=== PATIENT | female | born 1970 | race Caucasian/White ===

== ENCOUNTER 2018-11-26 19:59 | Emergency (ER) | payer BC, OTHER ==
[2018-11-26 20:06] VITALS: TEMP 97.7; BMI 27.7
[2018-11-26 21:35] LABS: BASO % 0.6 % (0-2.0); EOS % 1.1 % (0-4.5); HEMOGLOBIN 14.9 GM/dl (10.7-15.3); LYMPH % 19.8 % (8-40); MCH 31.3 pg (25.7-33.7); MCHC 33.1 g/dl (32.0-36.0); MEAN CELL VOLUME 94.7 fl (80-96); MEAN PLT VOLUME 8.7 fl (7.5-11.1); MONO % 4.8 % (3.8-10.2); NEUT % 73.7 % (42.8-82.8); PLATELET COUNT 309 K/MM3 (134-434); RBC 4.76 M/mm3 (3.60-5.2); RDW 12.3 % (11.6-15.6); WHITE BLOOD COUNT 9.1 K/mm3 (4.0-10.8)
[2018-11-26 21:50] LABS: ALBUMIN 4.2 g/dl (3.5-5.0); ALK PHOS 88 U/L (32-92); ANION GAP 10 MMOL/L (8-16); BILIRUBIN,TOTAL 0.6 mg/dl (0.2-1.0); BLOOD UREA NITROGEN 10 mg/dl (7-18); CALCIUM 8.9 mg/dl (8.4-10.2); CHLORIDE 100 mmol/L (98-107); CO2 24 mmol/L (22-28); CREATININE 0.6 mg/dl (0.6-1.3); GLUCOSE,RANDOM 108 mg/dl (74-106); SGOT/AST 25 U/L (10-42); SGPT/ALT 18 U/L (10-40); SODIUM 134 mmol/L (136-145); TOT PROT 7.5 g/dl (6.4-8.3)
--- NOTE | 2018-11-26 22:05 | PDOC ---
History of Present Illness - General Chief Complaint: Palpitations Stated Complaint: PALPITATIONS Time Seen by Provider: 11/26/18 19:59 - History of Present Illness Initial Comments: 11/26/18 21:53 Patient is a 48 year old female with a significant past medical history of HTN, diabetes, who presents to the ED with complaints of intermittent palpitations that began x2 days ago. Patient reports experiencing sudden onset palpitations while at rest this past Sunday. Not associated with CP/SOB/lightheadedness. She states that she felt very anxious at the time. The episode lasted a few minutes before subsiding spontaneously. Pt does endorse being under increased stress at work. She took the day off yesterday, which she states helped her a lot. However , today, pt returned to work and had a long stressful meeting. When she came home, she had another episode of palpitations lasting a few minutes. Denies chest pain, Sob. Denies nausea, vomiting. Denies contact with sick individuals out of state travelling. Denies fevers, chills. Denies any other symptoms. Pt states she is currently asymptomatic. Allergies: None Social history: Former smoker (last 12 yr ago). Social alcohol use. No illicit drugs. Surgical history: 2 c-sections. PMD: Dr. Fortune Past History - Past Medical History Allergies/Adverse Reactions: Allergies Allergy/AdvReac Type Severity Reaction Status Date / Time No Known Allergies Allergy Verified 11/26/18 19:59 Home Medications: Ambulatory Orders Lisinopril 20 mg PO DAILY 11/26/18 Cardiac Disorders: Yes ("IRREGULAR HEART RATE") COPD: No HTN: Yes Other medical history: SCOLIOSIS - Suicide/Smoking/Psychosocial Hx Smoking History: Never smoked Have you smoked in the past 12 months: No Information on smoking cessation initiated: No Hx Alcohol Use: (occasional) Review of Systems - Review of Systems Comments:: 11/26/18 21:55 GENERAL/CONSTITUTIONAL: No fever or chills. No weakness. HEAD, EYES, EARS, NOSE AND THROAT: No change in vision. No ear pain or discharge. No sore throat. CARDIOVASCULAR: + palpitations. No chest pain or shortness of breath. RESPIRATORY: No cough, wheezing, or hemoptysis. GASTROINTESTINAL: No nausea, vomiting, diarrhea or constipation. GENITOURINARY: No dysuria, frequency, or change in urination. MUSCULOSKELETAL: No joint or muscle swelling or pain. No neck or back pain. SKIN: No rash NEUROLOGIC: No headache, vertigo, loss of consciousness, or change in strength/ sensation. ENDOCRINE: No increased thirst. No abnormal weight change. HEMATOLOGIC/LYMPHATIC: No anemia, easy bleeding, or history of blood clots. ALLERGIC/IMMUNOLOGIC: No hives or skin allergy. *Physical Exam - Vital Signs Last Vital Signs Temp Pulse Resp BP Pulse Ox 97.7 F 103 H 18 116/88 99 11/26/18 19:59 11/26/18 19:59 11/26/18 19:59 11/26/18 19:59 11/26/18 19:59 - Physical Exam Comments: 11/26/18 21:55 GENERAL: Awake, alert, and fully oriented, in no acute distress. HEAD: No signs of trauma EYES: PERRLA, EOMI, sclera anicteric, conjunctiva clear ENT: Auricles normal inspection, hearing grossly normal, nares patent, oropharynx clear without exudates. Moist mucosa NECK: Nontender, no step offs, Normal ROM, supple, no lymphadenopathy, JVD, or masses LUNGS: Breath sounds equal, clear to auscultation bilaterally. No wheezes, and no crackles HEART: Regular rate and rhythm, normal S1 and S2, no murmurs, rubs or gallops ABDOMEN: Soft, nontender, normoactive bowel sounds. No guarding, no rebound. No masses EXTREMITIES: Normal range of motion, no edema. No clubbing or cyanosis. No cords, erythema, or tenderness NEUROLOGICAL: Cranial nerves II through XII intact. 5/5 strength and sensation in all extremities, Normal speech, normal gait, normal cerebellar function SKIN: Warm, Dry, normal turgor, no rashes or lesions noted. Moderate Sedation - Procedure Monitoring Vital Signs: Procedure Monitoring Vital Signs Temperature 97.7 F 11/26/18 19:59 Pulse Rate 103 H 11/26/18 19:59 Respiratory Rate 18 11/26/18 19:59 Blood Pressure 116/88 11/26/18 19:59 O2 Sat by Pulse Oximetry (%) 99 11/26/18 19:59 Heart Score/ECG Review - ECG Impressions Comment:: 11/26/18 21:55 NSR, no DANETTE/STDs, no TWIs, axis wnl, intervals wnl, rate 97 ED Treatment Course - LABORATORY CBC & Chemistry Diagram: 11/26/18 21:15 11/26/18 21:15 - ADDITIONAL ORDERS Additional order review: 11/26/18 21:15 RBC 4.76 MCV 94.7 MCHC 33.1 RDW 12.3 MPV 8.7 Neutrophils % 73.7 Lymphocytes % 19.8 Monocytes % 4.8 Eosinophils % 1.1 Basophils % 0.6 Medical Decision Making - Medical Decision Making 11/26/18 21:55 48 F with intermittent palpitations x 2 days, now resolved. Pt with no CP/SOB to suggest ACS. Suspect stress/anxiety-related. Will also evaluate for hyperthyroid. Pt with no symptoms currently. - Labs, TSH, trop - Reassess 11/26/18 22:29 Trop 0.11 Pt reassessed - continues to be chest pain free, asymptomatic Will admit to obs for trending of troponins Pt admitted to hospitalist. *DC/Admit/Observation/Transfer Diagnosis at time of Disposition: Palpitations - Discharge Dispostion Condition at time of disposition: Stable Decision to Admit order: Yes - Referrals Referrals: Taryn Fortune MD [Primary Care Provider] - - Patient Instructions - Post Discharge Activity - Attestations Physician Attestion: 11/26/18 22:29 I, Dr. Taran Matias MD, attest that this document has been prepared under my direction and personally reviewed by me in its entirety. I further attest, that it accurately reflects all work, treatment, procedures and medical decision -making performed by me.
[2018-11-26] MEDS ORDERED: ASPIRIN 81 MG CHEWABLE TABLETS PO ONE (22:34)
--- NOTE | 2018-11-26 22:39 | HP ---
CHIEF COMPLAINT: Palpitations PCP: Dr. Rosenda Fortune Aging Room Operator: Dr.Anthony Brown HISTORY OF PRESENT ILLNESS: This is a 48 y/o woman from home who reports having palpitations x 2 days. Patient reports while watching TV she began feeling palpitations lasting severeal seconds to minutes. Patient reports while at home today she had palpitations again, coming to the ED for evaluation. Patient denies having lightheadedness, SOB, CP. Patient denies fever, chills, cough, AP, N/V/D, constipation, dysuria ER course was notable for: (1) Troponin I 0.11, 0.58 (2) EKG- NSR 97 bpm, possible lateral infarct, inferior infarct age undetermined (3) Chest Xray image, no infiltrate no pleural effusion Recent Travel: None PAST MEDICAL HISTORY: HTN DM Scoliosis PAST SURGICAL HISTORY: C- section x2 [place] [facility] Social History: Smoking: Former > 16 yrs ago Alcohol: Wine, occasionally Drugs: Denies Resides with spouse and 2 sons, employed [employer] Family History: Father: HTN, Heart Disease late 50's Stent Sister: IBS Diabetes: Paternal Family Allergies No Known Allergies Allergy (Verified 11/26/18 19:59) HOME MEDICATIONS: Home Medications Medication Instructions Recorded Lisinopril 20 mg PO DAILY 11/26/18 REVIEW OF SYSTEMS CONSTITUTIONAL: Absent: fever, chills, diaphoresis, generalized weakness, malaise, loss of appetite, weight change HEENT: Absent: rhinorrhea, nasal congestion, throat pain, throat swelling, difficulty swallowing, mouth swelling, ear pain, eye pain, visual changes CARDIOVASCULAR: palpitations Absent: chest pain, syncope, irregular heart rate, lightheadedness, peripheral edema RESPIRATORY: Absent: cough, shortness of breath, dyspnea with exertion, orthopnea, wheezing, stridor, hemoptysis GASTROINTESTINAL: Absent: abdominal pain, abdominal distension, nausea, vomiting, diarrhea, constipation, melena, hematochezia GENITOURINARY: Absent: dysuria, frequency, urgency, hesitancy, hematuria, flank pain, genital pain MUSCULOSKELETAL: Absent: myalgia, arthralgia, joint swelling, back pain, neck pain SKIN: Absent: rash, itching, pallor HEMATOLOGIC/IMMUNOLOGIC: Absent: easy bleeding, easy bruising, lymphadenopathy, frequent infections ENDOCRINE: Absent: unexplained weight gain, unexplained weight loss, heat intolerance, cold intolerance NEUROLOGIC: headache Absent: focal weakness or paresthesias, dizziness, unsteady gait, seizure, mental status changes, bladder or bowel incontinence PSYCHIATRIC: Absent: anxiety, depression, suicidal or homicidal ideation, hallucinations. PHYSICAL EXAMINATION Vital Signs - 24 hr 11/26/18 19:59 Temperature 97.7 F Pulse Rate 103 H Respiratory 18 Rate Blood Pressure 116/88 O2 Sat by Pulse 99 Oximetry (%) GENERAL: Awake, alert, and fully oriented, in no acute distress. HEAD: Normal with no signs of trauma. EYES: Pupils equal, round and reactive to light, extraocular movements intact, sclera anicteric, conjunctiva clear. No lid lag. EARS, NOSE, THROAT: Ears normal, nares patent, oropharynx clear without exudates. Moist mucous membranes. NECK: Normal range of motion, supple without lymphadenopathy, JVD, or masses. LUNGS: Breath sounds equal, clear to auscultation bilaterally. No wheezes, and no crackles. No accessory muscle use. HEART: Tachycardia rate and rhythm, normal S1 and S2 without murmur, rub or gallop. ABDOMEN: Soft, nontender, not distended, normoactive bowel sounds, no guarding, no rebound, no masses. No hepatomegaly or splenomegaly. MUSCULOSKELETAL: Normal range of motion at all joints. No bony deformities or tenderness. No CVA tenderness. UPPER EXTREMITIES: 2+ pulses, warm, well-perfused. No cyanosis. No clubbing. No peripheral edema. LOWER EXTREMITIES: 2+ pulses, warm, well-perfused. No calf tenderness. No peripheral edema. NEUROLOGICAL: Cranial nerves II-XII intact. Normal speech. Gait not observed. PSYCHIATRIC: Cooperative. Good eye contact. Appropriate mood and affect. SKIN: Warm, dry, normal turgor, no rashes or lesions noted, normal capillary refill. Laboratory Results - last 24 hr 11/26/18 11/26/18 11/26/18 21:15 21:15 21:15 WBC 9.1 RBC 4.76 Hgb 14.9 Hct 45.0 MCV 94.7 MCH 31.3 MCHC 33.1 RDW 12.3 Plt Count 309 MPV 8.7 Absolute Neuts (auto) 6.7 Neutrophils % 73.7 Lymphocytes % 19.8 Monocytes % 4.8 Eosinophils % 1.1 Basophils % 0.6 Sodium 134 L Potassium 4.0 Chloride 100 Carbon Dioxide 24 Anion Gap 10 BUN 10 Creatinine 0.6 Creat Clearance w eGFR > 60 Random Glucose 108 H Calcium 8.9 Total Bilirubin 0.6 AST 25 ALT 18 Alkaline Phosphatase 88 Creatine Kinase 93 Troponin I 0.11 H Total Protein 7.5 Albumin 4.2 ASSESSMENT/PLAN: This is a 48 y/o woman with a PMHx of: HTN, DM, Scoliosis. Admitted for Palpations, Elevated Troponin, NSTEMI for further evaluation of their emergent condition. Plan: See Problem List FEN Replete lytes as indicated Low Na Diet DVT ppx OOB SCDs Heparin SQ Code Status: Full Code Dispo: Transfer to Tertiary Care, ALS Problem List - Problem (1) NSTEMI (non-ST elevated myocardial infarction) Assessment/Plan: - Troponin I elevated x2 Will trend 3rd Troponin EKG- #[address] or TWI, #2 no change compared to prior study Asa given tonight, will continue Continue cardiac monitoring Discussed with Cardiology, Dr. Burgess, per recommendations transfer to Telemetry Unit at [facility] if available if not transfer to Tertiary facility. CTA- neg PE Contacted [facility] discussed with Dr. Gurrola, patient accepted for transfer Code(s): I21.4 - NON-ST ELEVATION (NSTEMI) MYOCARDIAL INFARCTION (2) Palpitations Assessment/Plan: r/o NV vs PE Perc 2 Wells Score 1.5 d Dimer 609 CTA- r/o PE, no aortic dissection, no aneurysm Code(s): R00.2 - PALPITATIONS (3) Elevated d-dimer Assessment/Plan: r/o PE PERC 2 Wells Score 1.5 CTA- neg PE, no aortic dissection, or aneurysm Code(s): R79.89 - OTHER SPECIFIED ABNORMAL FINDINGS OF BLOOD CHEMISTRY (4) HTN (hypertension) Assessment/Plan: controlled Monitor BP Continue Lisinopril Code(s): I10 - ESSENTIAL (PRIMARY) HYPERTENSION Visit type - Emergency Visit Emergency Visit: Yes ED Registration Date: 11/26/08 Care time: The patient presented to the Emergency Department on the above date and was hospitalized for further evaluation of their emergent condition. - New Patient This patient is new to me today: Yes Date on this admission: 11/27/18 - Critical Care Critical Care patient: Yes Total Critical Care Time (in minutes): 120 Critical Care Statement: The care of this patient involved high complexity decision making to prevent further life threatening deterioration of the patient 's condition and/or to evaluate & treat vital organ system(s) failure or risk of failure.
[2018-11-26] MEDS ORDERED: LISINOPRIL 5 MG TABLET (FP) ONE (22:49)
[2018-11-26] MEDS ORDERED: ASPIRIN 325 MG TABLET ONE (22:49)
[2018-11-27 01:54] LABS: CHOLESTEROL 202 mg/dL (50-200); HDL CHOLESTEROL 81 mg/dL (40-60); TRIGLYCERIDES 64 mg/dL (0-150)
[2018-11-27] MEDS ORDERED: SODIUM CHLORIDE 1,000 ML IV SCH (04:45)
[2018-11-27 05:10] VITALS: BP 139/92; PULSE 67
--- NOTE | 2018-11-27 05:17 | HOSP ---
Subjective - Review of Symptoms Events since last encounter: Hospitalist Encounter Was informed by the RN that the 2nd Troponin is 0.58, patient is asymptomatic, denies CP, SOB, palpitations. Subjective: Arrived to bedside, patient is AAOx3, denies CP, palpitations, SOB Assessment: 48 y/o woman with PMHx of HTN, DM. Admitted for Palpitations, Elevated Troponin Plan: D- dimer pending, if elevated CTA r/o PE Call placed to [employer] to discuss case Physical Examination Vital Signs: Vital Signs Temperature 97.7 F 11/26/18 19:59 Pulse Rate 67 11/27/18 05:09 Respiratory Rate 21 H 11/27/18 05:09 Blood Pressure 139/92 11/27/18 05:09 O2 Sat by Pulse Oximetry (%) 96 11/27/18 05:09 Labs: CBC, BMP 11/26/18 21:15 11/26/18 21:15 Hospitalist Encounter Outcome: dDimer 609 CTA-pending Discussed case with Dr. Burgess, patient to transfer to Tertiary Care for NSTEMI, Palpitations, Elevated Troponin Disccused case with Dr. Gurrola [employer] from [facility], who accepts the patient
[2018-11-27] MEDS ORDERED: LISINOPRIL 20 MG TABLET (FP) PO SCH (10:00)
--- NOTE | 2018-11-27 10:03 | EKG ---
Test Reason : Blood Pressure : / mmHG Vent. Rate : 085 BPM Atrial Rate : 085 BPM P-R Int : 144 ms QRS Dur : 078 ms QT Int : 382 ms P-R-T Axes : 032 -61 022 degrees QTc Int : 454 ms POOR DATA QUALITY, INTERPRETATION MAY BE ADVERSELY AFFECTED NORMAL SINUS RHYTHM LEFT AXIS DEVIATION POSSIBLE LATERAL INFARCT (CITED ON OR BEFORE 26-NOV-2018) ABNORMAL ECG WHEN COMPARED WITH ECG OF 26-NOV-2018 20:10, NO SIGNIFICANT CHANGE WAS FOUND Confirmed by SADE MEJIA, NAHID ([id number]) on 11/27/2018 10:02:55 AM Referred By: CARLINE DIAZ Confirmed By:NAHID STUART MD
== END 2018-11-27 06:35 | disposition short-term general hospital (02) ==
LOC: FER 19:59
PROC: 3E0337Z Introduction of Electrolytic and Water Balance Substance into Peripheral Vein, Percutaneous Approach (ICD-10-PCS; principal; 2018-11-26)
DX: R00.2 Palpitations (principal); I10 Essential (primary) hypertension; E11.9 Type 2 diabetes mellitus without complications; M41.9 Scoliosis, unspecified
CPT/HCPCS: 36415; 71275-TC; 80053; 80061; 82550; 83721; 84443; 84484; 85025; 85379; 93005; 99285-25; J7030